=== PATIENT | female | born 2000 | race Caucasian/White ===

== ENCOUNTER 2020-07-06 08:20 | Observation (INO) ==
--- NOTE | 2020-06-08 16:27 | PAT Medication Instructions ---
Medication Instructions Date of Service June 08, 2020 Home Medications cholecalciferol (vitamin D3) 50 mcg (2,000 unit) capsule 2,000 unit PO DAILY etonogestrel 0.12 mg-ethinyl estradiol 0.015 mg/24 hr vaginal ring 1 vag ring PV .USE DIRECTED. dexmethylphenidate 5 mg tablet 10 - 15 mg PO DAILY PRN Continue as directed etonogestrel 0.12 mg-ethinyl estradiol 0.015 mg/24 hr vaginal ring 1 vag ring PV .USE DIRECTED. DO NOT take the morning of surgery cholecalciferol (vitamin D3) 50 mcg (2,000 unit) capsule 2,000 unit PO DAILY dexmethylphenidate 5 mg tablet 10 - 15 mg PO DAILY PRN Other Notes If you have any questions please call us at [phone] or [phone] or [phone] or [phone]
--- NOTE | 2020-06-12 13:45 | Anesthesiology Consultation ---
Date of Service June 12, 2020 Assessment & Plan (1) Encounter for pre-operative examination: - Check test AM DOS Per PAT assessment on 06/12: Travel screen- Lives in [facility]. Travel to [facility] for doctor appt. Traveled to [place], [place] to [facility] [place] this past weekend (return from travel will be greater than 2 weeks since DOS). No interactions with other people. No known COVID-19 positive contacts (coworker was tested d/t possible exposure 2 weeks ago- result was negative). No current COVID-19 related symptoms. Surgeon arranging preop COVID testing 07/03 ([place]). Awaiting results. Chart Review Chart Review: Acceptable Risk for Surgery and Patient seen in Pre Admission Testing Teaching & Discussion Pre-Anesthesia Teaching/Discussion Notes: Instructed NPO after midnight before surgery,except medications with 15 cc of water. Medication instructions provided according to the PAT guidelines. History Surgery Operation Date: 07/06/20 08:50 Proposed Procedures p Robotic Total Laparoscpopic Hysterectomy - Pily Vu MD, FACOG Height/Weight Height: 6 ft Weight: 62.3 kg Allergies Allergy/AdvReac Type Severity Reaction Status Date / Time gluten Allergy Intermediate SICK TO Verified 06/12/20 12:36 STOMACH lactose Allergy Intermediate SICK TO Verified 06/12/20 12:36 STOMACH Gold Salts Allergy Mild SKIN Verified 06/12/20 12:36 SENSITIVITY Medications Home Medications Medication Instructions Recorded Confirmed Last Taken cholecalciferol (vitamin D3) 50 2,000 unit PO DAILY 12/28/19 06/12/20 Unknown mcg (2,000 unit) capsule etonogestrel 0.12 mg-ethinyl 1 vag ring PV .USE DIRECTED. 12/28/19 06/12/20 Unknown estradiol 0.015 mg/24 hr vaginal ring dexmethylphenidate 5 mg tablet 10 - 15 mg PO DAILY PRN tab 05/14/20 06/12/20 Unknown Past Medical History Medical History ADHD Anxiety and depression Celiac disease Gender dysphoria History of anemia Migraine Non-binary gender Tachycardia s/p unremarkable holter monitor per patient Exercise / Class Metabolic Activity III < 4 Walking/Shop/Light housework Past Family History Family History Father Celiac disease Past Surgical History Surgical History No significant past surgical history Past Anesthesia History No Hx of Anesthesia Complications and No Family Hx of Anesthesia Complications History of PONV No Hx of PONV and Hx of Motion Sickness (occasional) Social History Smoking Status: Never smoker Do You Dip or Chew Tobacco: No Hx Alcohol Use: Yes alcohol intake frequency: holidays/special occasions only Hx Substance Use: No substance use type: does not use Review of Systems Patient denies chest pain, shortness of breath, fever, chills, cough, wheezing, palpitations. Physical Exam Vital Signs VITALS BP 103/72 P 89 TEMP 99.0 SP02 100%RA RESP 18 PHYSICAL Full neck and c-spine range of motion. Full TMJ range of motion. TMD 3 finger breaths Mallampati Score 3 Dentition: upper front chipped tooth Lungs: clear throughout to auscultation Cardiac: regular rate and rhythm, no murmurs noted Spine: normal Extremities: no edema Testing Laboratory Results 06/12/20 14:30 Blood Type A Positive 06/12/20 14:30 Antibody Screen NEGATIVE 06/12/20 14:30 04/19/20 SODIUM 140 POTASSIUM 4.7 CHLORIDE 105 CO2 25 BUN 10 CREATININE 0.8 GLUCOSE 84
[2020-06-12 16:00] LABS: Basophils # (auto) 0.03 K/uL (0-0.2); Basophils % (auto) 0.5 %; Eosinophils % (auto) 1.7 %; Hematocrit (blood only) 41.2 % (37-47); Hemoglobin 14.2 g/dL (12.0-16.0); Immature Granulocytes # (auto) 0.01 K/uL (0.00-0.02); Immature Granulocytes % (auto) 0.2 %; Lymphocytes # (auto) 2.09 K/uL (1.2-3.4); Lymphocytes % (auto) 34.7 %; Mean Corpuscular Hemoglobin 30.6 pg (25-34); Mean Corpuscular Hgb Conc 34.5 g/dL (32-36); Mean Corpuscular Volume 88.8 fL (80-100); Mean Platelet Volume 11.4 fL (7.4-10.4); Monocytes # (auto) 0.44 K/uL (0.11-0.59); Monocytes % (auto) 7.3 %; Neutrophils # (auto) 3.36 K/uL (1.4-6.5); Neutrophils % (auto) 55.6 %; Platelet Count 209 K/uL (130-400); RDW Coefficient of Variation 12.8 % (11.5-14.5); RDW Standard Deviation 41.3 fL (36.4-46.3); Red Blood Count 4.64 M/uL (4.2-5.4); White Blood Count 6.03 K/uL (4.8-10.8)
[~2020-07-06 08:20] MED LIST: CEFAZOLIN 2000MG 2,000 MG/15 ML SYR IV SCH; LR 15ML/HR IV SCH; LR 60ML/HR IV SCH
[2020-07-06] MEDS ORDERED: fentaNYL citrate 100 MCG/2 ML VIAL ONE (09:24)
[2020-07-06] MEDS ORDERED: ONDANSETRON INJ 2 MG/ML 2 ML VIAL ONE (09:24)
[2020-07-06] MEDS ORDERED: LIDOCAINE HCL 2% 2 ML VIAL/AMP(20MG/ML) INFIL ONE (09:24)
[2020-07-06] MEDS ORDERED: DEXAMETHASONE SOD INJ 4 MG/ML VIAL ONE (09:24)
[2020-07-06] MEDS ORDERED: PROPOFOL IV EMULSION 10 MG/ML 20 ML VIAL IV ONE (09:24)
[2020-07-06] MEDS ORDERED: KETOROLAC 30 MG/ML VIAL ONE ×2 (09:24→13:10)
[2020-07-06] MEDS ORDERED: MIDAZOLAM HCL 1 MG/ML 2ML VIAL ONE (09:24)
[2020-07-06] MEDS ORDERED: ROCURONIUM BROMIDE 10 MG/ML 5 ML VIAL IV ONE (09:24)
[2020-07-06 09:26] LABS: Pregnancy Test, Serum Negative (Negative)
[2020-07-06] MEDS ORDERED: ACETAMINOPHEN 1000 MG/100 ML IV IV ONE (09:26)
[2020-07-06] MEDS ORDERED: SCOPOLAMINE 1.5 MG TDSY TD ONE ×2 (10:32→10:35)
[2020-07-06] MEDS ORDERED: PROMETHAZINE HCL 12.5 MG in SODIUM CHLORIDE 0.9% 50 ML IV PRN (10:35)
[2020-07-06] MEDS ORDERED: ONDANSETRON INJ 2 MG/ML 2 ML VIAL IV PRN ×2 (10:35→13:42)
[2020-07-06] MEDS ORDERED: ePHEDrine sulfate 50 MG/ML AMP IV PRN (10:35)
[2020-07-06] MEDS ORDERED: ATROPINE SULFATE 0.1 MG/ML 10ML SYR IV PRN (10:35)
[2020-07-06] MEDS ORDERED: HYDROmorphone INJ 2 MG/ML SYR/VIAL IV PRN (10:35)
[2020-07-06] MEDS ORDERED: BUPIVACAINE 0.5 % 5 MG/1 ML MPF 30ML VIAL ONE (10:53)
[2020-07-06] MEDS ORDERED: PHENAZOPYRIDINE HCL 200 MG TAB PO STA (11:36)
[2020-07-06] MEDS ORDERED: PHENAZOPYRIDINE HCL 200 MG TAB ONE (11:37)
--- NOTE | 2020-07-06 11:39 | History & Physical Bridge Note ---
Date of Service July 06, 2020 History & Physical Bridge Note I have examined the patient, reviewed the History & Physical and in the interval since the performance of the History & Physical I have noted the following changes of clinical significance: no changes noted
[2020-07-06] MEDS ORDERED: HYDROmorphone INJ 2 MG/ML SYR/VIAL ONE (12:51)
[2020-07-06] MEDS ORDERED: NEOSTIGMINE METHYLSULFATE 5 MG/5 ML SYR ONE (13:10)
[2020-07-06] MEDS ORDERED: GLYCOPYRROLATE 0.2 MG/ML VIAL ONE (13:10)
[2020-07-06] MEDS ORDERED: BUPIVACAINE 0.5 % 5 MG/1 ML MPF 30ML VIAL INFIL ONE (13:14)
--- NOTE | 2020-07-06 13:20 | Post Operative Brief Note ---
PG Immediate Post Op with CF Date of Surgery July 06, 2020 Pre & Post Diagnosis Operation Date: 07/06/20 09:50 Pre-Op Diagnosis: Gender Dysphoria, Menorrhagia Post-Op Diagnosis: Gender Dysphoria, Menorrhagia I identified the patient and participated in the time-out.: Yes Procedure Operation Date: 07/06/20 09:50 Actual Procedures p Robotic Total Laparoscpopic Hysterectomy, Bilateral salpingectomy, and Cystoscopy(Not Applicable) - Pily Vu MD, FACOG Surgeon Pily Vu MD, FACOG Legal Records Clerk RN Estimated Blood Loss 0 Findings Consistent with Post-Op Diagnosis (small mobile uterus, normal tubes and ovaries bilaterally, normal liver edge) Fluids 1400 Specimens Specimen Description: A. Uterus, cervix, and bilateral fallopian tubes Drains Montano Catheter Anesthesia Type General Complications none Disposition Accompanied Patient To Recovery: No Disposition: Recovery Room
[2020-07-06] MEDS ORDERED: OXYCODONE/ACETAMINOPHEN 5mg/325mg TAB PO PRN ×2 (13:42)
[2020-07-06] MEDS ORDERED: SIMETHICONE 80 MG CHEW PO PRN (13:42)
[2020-07-06] MEDS ORDERED: IBUPROFEN 600 MG TAB PO PRN (13:42)
[2020-07-06] MEDS ORDERED: ACETAMINOPHEN 325 MG TAB PO PRN (13:42)
[2020-07-06] MEDS: fentaNYL citrate 100 MCG/2 ML VIAL IV PRN ×2 (13:46→14:51)
--- NOTE | 2020-07-06 13:57 | Operative Report ---
PG Post Operative Report Pre & Post Diagnosis Operation Date: 07/06/20 09:50 Pre-Op Diagnosis: Gender Dysphoria, Gender Non Binary, Dysmenorrhea, Menorrhagia Post-Op Diagnosis: Gender Dysphoria, Gender Non Binary, Dysmenorrhea, Menorrhagia I identified the patient and participated in the time-out.: Yes Procedure Operation Date: 07/06/20 09:50 Actual Procedures 1. Total Laparoscopic Hysterectomy 2. Bilateral Salpingectomies 3. Cystoscopy 4. Robotic Assistance Surgeon Pily Vu MD, FACOG Ordnance Truck Installation Supervisor RN Estimated Blood Loss 0 Findings Consistent with Post-Op Diagnosis (small mobile uterus, normal tubes and ovaries bilaterally, normal liver edge, cystoscopy findings with normal bladder filling and normal ureteral jets) Fluids 1400 Specimens uterus, cervix, bilateral fallopian tubes Drains castillo Anesthesia Type General Complications none Disposition Accompanied Patient To Recovery: No Disposition: Recovery Room Indications 19yo G0 with cc of gender dysphoria, gender non binary, menorrhagia and dysmenorrhea who desires hysterectomy. They have opted to keep ovaries if able. They have come to this conclusion after discussion with therapists and gynecology. They are sure they want to proceed. Description of Procedure The patient was taken to the operating room and identified. After adequate general anesthesia was obtained she was placed in the dorsolithotomy position and prepped and draped in the usual sterile fashion. Attention was turned to the patient's vagina where a weighted speculum and anterior retractor were used to visualize the cervix. The cervix was grasped on its anterior lip with an allis clamp. A single interrupted suture of 0-vicryl was placed at the 3 o'clock position and tied down. The uterus sounded to 7cm. The V-Care uterine manipulator was placed through the cervical os into the uterine cavity and the balloon was inflated. The cup was tied down against the cervix with the suture material and the stabilizing cup was placed. A castillo catheter had already been placed under sterile conditions. The retractors were removed and attention was then turned to the patient's abdomen. The scalpel was used to make a supraumbilical skin incision and the veress needle was placed intraperitoneally with an opening pressure of 4mm Hg. A CO2 pneumoperitoneum was created. The 12mm optical trocar attached to the laparoscope was then placed intraperitoneally and the patient was placed in steep Trendelenburg. The pelvis and abdomen were inspected with the findings as noted above. Two Da Sean trocar sites were created left and right of the midline by first make skin incisions with the scalpel and then placing under direct visualization Da Sean trocars. A blunt probe was used to move the bowel away from the planned operative sites. The laparoscope was removed and the Da Sean Robot was brought to the patient's bedside. The appropriate arms were connected to the appropriate trocars. The camera was introduced. The monopolar kingston and the fenestrated bipolar instruments were brought through instrument arms #1 and #2 respectively under direct visualization. The surgeon then went to the console. Using manipulation from below the right uterine ovarian/fallopian tube/round ligament complex was identified. The ureter was seen coursing well below the planned operative site. The fallopian tube was resected along the mesosalpinx and then complex of the uterine ovarian/ round ligament was coagulated and transected gradually with the bipolar cautery followed by the monopolar kingston. The anterior and posterior leaves of the broad ligament were opened and the bladder flap was begun anteriorly towards the anterior midline. The uterine artery pedicle was bluntly skeletonized. With the bladder well away from the planned operative sites, the uterine artery pedicle was cauterized and the cardinal ligament attachments were also coagulated and transected. Attention was then turned to the left uterine ovarian/fallopian tube/round ligament complex. The fallopian tube was dissected along the mesosalpinx and the uterine ovarian/round ligament complex was coagulated and transected. The broad ligament leaves were opened up on this side and a bladder flap was created from this side meeting in the midline anteriorly. The bladder was pushed away bluntly from the planned colpotomy site. The uterine artery pedicle was skeletonized on this side and the vessels were coagulated and transected and sequentially the cardinal ligament attachments were also coagulated and cut. The pedicle was pushed well away from the planned colpotomy. The bladder had been dissected and pushed well away from the planned colpotomy site. The uterus was raised and the colpotomy was begun posteriorly and carried around circumferentially to transect the cervix from the upper vagina. The specimen was then brought out vaginally and a sponge was placed in the vagina to maintain the pneumoperitoneum. Operative sites were hemostatic. The monopolar kingston were replaced with a large needle warehouse associate driver and the 2-0 V-Lock 90 suture was brought through the vagina. The cuff was closed in a routine fashion with this suture material and back sutures were placed. The sponge was removed from the vagina and the pneumoperitoneum was maintained. The suture material was cut and the needle was removed from the abdomen through instrument arm #1. After the needle was removed the suction auto body repairman was brought through the right trocar and the pelvis was irrigated and the operative sites were hemostatic. The pneumoperitoneum was let down and no bleeding sites were noted. The cystoscopy was then performed with the findings as noted above and a new castillo catheter was placed. The camera and all laparoscopic instruments were removed and the robot was then undocked and moved away from the patient's bedside. The CO2 gas was allowed to escape from the patient's abdomen. The trocars were removed. The supraumbilical tissues were reapproximated with 0 vicryl and all skin incisions were closed with 4-0 vicryl in a subcuticular fashion. The incisions were injected with marcaine and dressed with band-aids. At this point the procedure was terminated. The patient was returned to the supine position and transported to the recovery room in stable condition. All sponge lap and needle counts were correct x 2. I attest to the content of the Intraoperative Record and any orders documented therein. Any exceptions are noted below. EDITOR TR[employer]OURNAL Major Procedure Codes Hysterectomy 92389 TLH <250g +S/O Miscellaneous 96350 Cystoscopy
--- NOTE | 2020-07-06 15:59 | Anesthesiology Progress Note ---
Date of Service July 06, 2020 Anesthesia Post Procedure Vital Signs Vital Signs: Temp Pulse Pulse Resp BP BP Pulse Ox 07/06/20 15:20 96 H 19 111/71 97 07/06/20 15:10 100 H 20 113/78 96 07/06/20 15:00 100 H 20 113/58 L 96 07/06/20 14:50 90 16 108/66 95 07/06/20 14:40 76 18 111/61 97 07/06/20 14:30 75 18 113/65 95 07/06/20 14:20 89 18 114/69 100 07/06/20 14:10 89 20 119/77 100 07/06/20 14:00 83 18 122/70 100 07/06/20 13:50 89 18 116/68 100 07/06/20 13:40 87 20 120/65 100 07/06/20 13:35 36.3 C L 86 17 125/59 L 100 07/06/20 08:59 36.8 C 73 16 137/85 98 Pain Intensity Abdomen: Pain Intensity: 2 Transfer of Care Handoff Completed per policy Notes Mental Status: alert / awake / arousable and participated in evaluation Patient Amnestic to Procedure: Yes Nausea / Vomiting: adequately controlled Pain: adequately controlled Airway Patency, RR, SpO2: stable & adequate BP & HR: stable & adequate Hydration State: stable & adequate Anesthetic Complications: no major complications apparent and Pt Satisfied with anesthetic care
[2020-07-06] MEDS ORDERED: CHECK SCOPOLAMINE PATCH PLACEMENT SCH (16:00)
[2020-07-06 16:06] VITALS: TEMP 97.7
[2020-07-06 18:56] VITALS: BP 112/72; PULSE 100; O2SAT 96
--- NOTE | 2020-07-10 09:40 | Discharge Summary ---
Date of Service Day of admission and discharge: July 06, 2020 Discharge Data Procedures Performed Operation Date: 07/06/20 09:50 Actual Procedures p Robotic Total Laparoscpopic Hysterectomy, Bilateral salpingectomy(Not Applicable) - Pily Vu MD, BATSHEVA s Cystoscopy(Not Applicable) - Pily Vu [place], [facility] [place] (1) Gender dysphoria: (2) Non-binary gender: (3) Dysmenorrhea: (4) Menorrhagia: 19yo G0 with above diagnoses with plan for hysterectomy. Patient was admitted and underwent the above stated procedures. Please see her H&P for more detail. The procedures were performed without incident. Her postop recovery and course were uncomplicated and on POD #0 she was stable for discharge to home. She was tolerating a regular diet, voiding and ambulating without difficulty and her pain was well controlled on oral pain medications. Her instructions were reviewed and followup reviewed which was planned for approximately 2 weeks. She was sent appropriate pain medicine scripts to her pharmacy. Coding Level of Care Code None Diagnoses Gender dysphoria F64.9 Non-binary gender Dysmenorrhea N94.6 Menorrhagia N92.0
== END 2020-07-06 20:24 | disposition home or self-care (01) ==
LOC: ASU 08:20 → 3W 08:20